=== PATIENT | male | born 1965 | race Caucasian/White ===

== ENCOUNTER 2016-11-26 11:54 | Emergency (ER) | payer SELFPAY ==
[2016-11-26] MEDS ORDERED: ASPIRIN 81 MG TABLET, CHEWABLE PO ONE (12:20)
--- NOTE | 2016-11-26 12:28 | ER Document Report ---
ED Cardiac - General Chief Complaint: Chest Pain > 30 Stated Complaint: CHEST PAIN Time seen by provider: 12:27 Notes: The patient is a 51-year-old male, unknown past medical history because he has not seen a doctor in 30 years, presents with 1 day of intermittent substernal chest pain with radiation to his right shoulder while at rest. Says the pain last about 45 minutes and resolves. Currently asymptomatic. He denies shortness of breath, nausea, vomiting, back pain, leg swelling, cough, fevers or headache. Past Medical History - General Information source: Patient - Social History Smoking Status: Never Smoker Family History: Reviewed & Not Pertinent Review of Systems - Review of Systems Notes: REVIEW OF SYSTEMS: CONSTITUTIONAL: -fevers, -chills EENT: -eye pain, -difficulty swallowing, -nasal congestion CARDIOVASCULAR: +chest pain, -syncope. RESPIRATORY: -cough, -SOB GASTROINTESTINAL: -abdominal pain, - nausea, -vomiting, -diarrhea GENITOURINARY: -dysuria, -hematuria MUSCULOSKELETAL: -back pain, -neck pain SKIN: -rash or skin lesions. HEMATOLOGIC: -easy bruising or bleeding. LYMPHATIC: -swollen, enlarged glands. NEUROLOGICAL: -altered mental status or loss of consciousness, -headache, - neurologic symptoms PSYCHIATRIC: -anxiety, -depression. ALL OTHER SYSTEMS REVIEWED AND NEGATIVE. Physical Exam - Vital signs Vitals: Resp Pulse Ox 11 L 92 11/26/16 12:23 11/26/16 12:23 - Notes Notes: PHYSICAL EXAMINATION: GENERAL: Well-appearing, well-nourished and in no acute distress. HEAD: Atraumatic, normocephalic. EYES: Pupils equal round and reactive to light, extraocular movements intact, sclera anicteric, conjunctiva are normal. ENT: nares patent, oropharynx clear without exudates. Moist mucous membranes. NECK: Normal range of motion, supple without lymphadenopathy LUNGS: Breath sounds clear to auscultation bilaterally and equal. No wheezes rales or rhonchi. HEART: Regular rate and rhythm without murmurs ABDOMEN: Soft, nontender, normoactive bowel sounds. No guarding, no rebound. No masses appreciated. EXTREMITIES: Normal range of motion, no pitting or edema. No cyanosis. NEUROLOGICAL: Cranial nerves grossly intact. Normal speech, normal gait. Normal sensory, motor, and reflex exams. PSYCH: Normal mood, normal affect. SKIN: Warm, Dry, normal turgor, no rashes or lesions noted. 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 Spoke to Dr. David ([employer]) and he agrees with diagnosis and recommends transfer to Center with interventional cardiology. Does not recommend TNK at this time. Will provide aspirin, Lovenox and transfer for interventional cardiology. Patient requests to be transferred to [facility] because he lives next to the hospital. Called [facility] at 12:50. HD stable at this time and chest pain free. 11/26/16 13:[address] Henriquez ([facility] Hospitalist) and he has accepted the patient. Troponin still pending. Will call back if troponin elevated. 11/26/16 13:33 Called back to [facility] about elevated troponin level. Bed given, but room dirty. Arranging air transportation now. Patient continues to remain chest pain-free and hemodynamically stable. - Vital Signs Vital signs: Temp Pulse Resp BP Pulse Ox 15 133/101 H 100 11/26/16 13:01 11/26/16 13:01 11/26/16 13:01 - Laboratory Result Diagrams: 11/26/16 12:25 11/26/16 12:25 Laboratory results interpreted by me: 11/26/16 11/26/16 12:25 12:25 Creatine Kinase 24 L NT-Pro-B Natriuret Pep 1300 H - Diagnostic Test Radiology reviewed: Image reviewed, Reports reviewed Radiology results interpreted by me: CXR: NAD - EKG Interpretation by Me EKG shows normal: Sinus rhythm, [place], Intervals, QRS Complexes Additional EKG results interpreted by me: Biphasic T-waves in leads V2-V5, concerning for Wellen's Syndrome. Critical Care Note - Critical Care Note Total time excluding time spent on procedures (mins): 35 Discharge - Discharge Clinical Impression: Wellen's Syndrome, Elevated troponin Chest pain Qualifiers: Chest pain type: unspecified Qualified Code(s): R07.9 - Chest pain, unspecified Condition: Serious Disposition: [facility] Admitting Provider: Hospitalist - Unit Admitted: [facility]
--- NOTE | 2016-11-26 12:39 | EKG REPORT ---
SEVERITY:- ABNORMAL ECG - SINUS RHYTHM PROBABLE ANTEROSEPTAL INFARCT, AGE INDETERM ABNORMAL T, CONSIDER ISCHEMIA, ANT-LAT LEADS : Confirmed by: Brayden Hollins 26-Nov-2016 12:39:17
--- NOTE | 2016-11-26 12:41 | EKG REPORT ---
SEVERITY:- ABNORMAL ECG - SINUS RHYTHM NONSPECIFIC T ABNORMALITIES, LATERAL LEADS ASMI AGE INDETERMINATE : Confirmed by: Brayden Hollins 26-Nov-2016 12:39:53
[2016-11-26] MEDS ORDERED: ENOXAPARIN SODIUM INJ 80 MG/0.8 ML DISP.SYRIN SUBCUT ONE (12:42)
[2016-11-26 12:43] LABS: ABSOLUTE BASOPHILS # (AUTO) 0.1 10^3/uL (0.0-0.2); ABSOLUTE EOSINOPHILS # (AUTO) 0.1 10^3/uL (0.0-0.6); ABSOLUTE LYMPHOCYTES (AUTO) 1.2 10^3/uL (0.5-4.7); ABSOLUTE MONOCYTES (AUTO) 0.4 10^3/uL (0.1-1.4); ABSOLUTE NEUT (AUTO) 3.1 10^3/uL (1.7-8.2); EOSINOPHILS % (AUTO) 2.3 % (0-6); HEMATOCRIT 42.8 % (37.9-51.0); HGB HCT DIFFERENCE 2.2; LYMPHOCYTES % (AUTO) 24.9 % (13-45); MEAN CORPUSCULAR HEMOGLOBIN 30.7 pg (27.0-33.4); MEAN CORPUSCULAR HGB CONC 35.1 g/dL (32.0-36.0); MEAN CORPUSCULAR VOLUME 88 fl (80-97); MONOCYTES % (AUTO) 8.2 % (3-13); RED BLOOD COUNT 4.89 10^6/uL (4.35-5.55); RED CELL DISTRIBUTION WIDTH 13.1 % (11.5-14.0); SEGMENTED NEUTROPHILS % (AUTO) 63.6 % (42-78); WHITE BLOOD COUNT 4.9 10^3/uL (4.0-10.5)
[2016-11-26 12:57] LABS: PARTIAL THROMBOPLASTIN TIME 30.7 SEC (23.5-35.8); PROTHROMBIN TIME 13.9 SEC (11.4-15.4)
[2016-11-26 13:10] LABS: ANION GAP 9 (5-19); BLOOD UREA NITROGEN 16 mg/dL (7-20); CALCIUM 9.5 mg/dL (8.4-10.2); CARBON DIOXIDE 30 mmol/L (22-30); CHLORIDE 102 mmol/L (98-107); CREATINE KINASE 24 U/L (55-170); CREATININE RESULT 1.18 mg/dL (0.52-1.25); GLUCOSE 79 mg/dL (75-110); SODIUM 140.5 mmol/L (137-145)
[2016-11-26 13:20] LABS: CREATINE KINASE MB 3.13 ng/mL (<4.55)
[2016-11-26 13:24] LABS: TROPONIN I 0.332 ng/mL
[2016-11-26 15:07] VITALS: BP 134/107
== END 2016-11-26 15:05 | disposition short-term general hospital (02) ==
LOC: ER 11:54
DX: R07.89 Other chest pain (principal); R94.31 Abnormal electrocardiogram [ECG] [EKG]; R74.8 Abnormal levels of other serum enzymes
CPT/HCPCS: 93005; 99291; 36415; 82553; 82550; 85025; 85610; 85730; 80048; 84484; 83880; 71010; 93010; J1650